=== PATIENT | male | born 1990 | race Caucasian/White ===

== ENCOUNTER 2017-07-14 14:15 | Emergency (ER) | payer BC ==
[~2017-07-14] VITALS: Ht 185.4 cm; Wt 81.6 kg
[2017-07-14] MEDS ORDERED: ZITHROMAX200 MG PO (17:04)
== END 2017-07-14 17:10 | disposition home or self-care (01) ==
LOC: ER 14:15
DX: J35.01 Chronic tonsillitis (principal)

== ENCOUNTER → 2020-12-11 | Emergency (ER) | payer OTHER ==
[~2020-12-11] VITALS: Ht 182.9 cm; Wt 86.2 kg
[~2020-12-11] MED LIST: ZITHROMAX200 MG PO
== END | disposition home or self-care (01) ==
LOC: ER 08:55
DX: S81.812A Laceration without foreign body, left lower leg, initial encounter (principal); X58.XXXA Exposure to other specified factors, initial encounter; Y93.89 Activity, other specified; Y92.098 Other place in other non-institutional residence as the place of occurrence of the external cause; Y99.8 Other external cause status

== ENCOUNTER 2021-01-01 09:39 | Emergency (ER) | payer OTHER ==
[~2021-01-01] VITALS: Ht 185.4 cm; Wt 81.6 kg
== END 2021-01-01 11:59 | disposition home or self-care (01) ==
LOC: ER 09:39
DX: Z48.02 Encounter for removal of sutures (principal)